=== PATIENT | male | born 1980 | race Caucasian/White ===

== ENCOUNTER 2021-05-07 13:00 | Emergency (ER) | payer BC, SELFPAY ==
[~2021-05-07] VITALS: Ht 172.7 cm; Wt 81.6 kg
[2021-05-07 13:00] VITALS: BP_SYST 103
--- NOTE | 2021-05-07 13:00 | NUR ---
BROUGHT TO OUTSIDE TRIAGE TENT AND TRIAGED. WILL ASSUME CARE
--- NOTE | 2021-05-07 14:20 | NUR ---
DR CORTEZ EVALUATING PT OUTSIDE IN TRIAGE TENT.
--- NOTE | 2021-05-07 15:40 | NUR ---
PT LEFT WITHOUT SIGNING PAPERWORK.
== END 2021-05-07 15:40 | disposition left against medical advice (07) ==
LOC: SED 13:00
DX: J12.9 Viral pneumonia, unspecified (principal)
CPT/HCPCS: 71045; 99283